=== PATIENT | female | born 1955 | race Caucasian/White ===

== ENCOUNTER 2024-09-24 07:44 | Day surgery (SDC) | payer OTHER, SELFPAY ==
[2024-09-01 10:07] VITALS: BMI 29.9
[2024-09-01 10:29] LABS: % Eosinophils 2.3 % (0-6); % Immature Granulocytes 0.4 % (0-0.5); % Lymphocytes 25.2 % (20.5-51.1); % Monocytes 7.6 % (1.7-9.3); % Neutrophils 63.5 % (42.2-75.2); Absolute Basophils 0.1 10^3/uL (0-0.2); Absolute Eosinophils 0.1 10^3/uL (0-0.7); Absolute Lymphocytes 1.3 10^3/uL (1.2-3.4); Absolute Monocytes 0.4 10^3/uL (0.1-0.6); Absolute Neutrophils 3.3 10^3/uL (1.4-6.5); Hematocrit 43.1 % (37.0-47.0); Hemoglobin 14.4 g/dL (12.0-16.0); Mean Corp Hgb Conc. 33.4 g/dL (33.0-37.0); Mean Corpuscular Hgb 31.1 pg (27.0-31.0); Mean Corpuscular Volume 93.1 fL (81.0-99.0); Mean Platelet Volume 9.7 fL (7.4-10.4); Nucleated Red Blood Cells % 0 %; Platelet Count 216 10^3/uL (130-400); Red Blood Cell Count 4.63 10^6/uL (4.20-5.40); White Blood Cell Count 5.2 10^3/uL (4.8-10.8)
[2024-09-01 10:40] LABS: INR 2.09; PT 23.9 Sec (11.4-14.6)
[2024-09-01 10:57] LABS: ALT (SGPT) 29 U/L (0-35); AST (SGOT) 36 U/L (14-36); Alkaline Phosphatase 160 U/L (38-126); Blood Urea Nitrogen 16 mg/dl (7-17); Calcium 10.2 mg/dl (8.4-10.2); Carbon Dioxide 32 mmol/L (22-30); Chloride 101 mmol/L (98-107); Estimated Creatinine Clearance 94 ml/min; Glucose 82 mg/dl (70-99); Potassium 3.9 mmol/L (3.5-5.1); Sodium 139 mmol/L (135-145); Total Bilirubin 0.6 mg/dl (0.2-1.3); Total Protein 7.4 g/dl (6.3-8.2); eGFR > 60.00
[2024-09-24] VITALS (13 sets, daily range): BP systolic 126–168; BP diastolic 58–93
[2024-09-24 08:22] LABS: INR 1.96; PT 22.5 Sec (11.4-14.6)
[2024-09-24 11:58] LABS: ACT-LR - POC > 397 Seconds (116-155)
[2024-09-24 11:58] LABS: ACT-LR - POC > 397 Seconds (116-155)
--- NOTE | 2024-09-24 12:00 | ITS.CL.ABL ---
Artificial Glass Eye Maker - Ablation
Ablation
Procedure Report:
ELECTROPHYSIOLOGY ABLATION STUDY
DATE:: September 24, 2024�����������������������������REFERRING: Dr. Mini Deleon
INDICATION: Persistent supraventricular tachycardia in the form of atrial fibrillation.�
HISTORY: See H and P.��Presents for pulmonary vein isolation
ANTIARRHYTHMIC DRUG: Phenytoin
PRE-PROCEDURE RAE: No intracardiac thrombus and intracardiac ultrasound
PRESENTING RHYTHM: As above
'TIME-OUT':��called and confirmed.
SEDATION/ANESTHESIA:��provided via the anesthesia department using general anesthesia (LMA).
INTRAVENOUS/ARTERIAL ACCESS:
Right femoral venous -8 Afghan upgraded to 16.8 Afghan
Left femoral venous - 8 Fr, 6 Fr
Left femoral arterial - 5 Fr
Ultrasound guidance for bilateral femoral vein access was utilized by me to obtain access with demonstration of normal anatomy
Qhpyxn-pg-luntn suture and lidocaine with epi to each femoral venous site at the end of the procedure.
HAS-Bled Score
PROCEDURE:
1.��A decapolar CS catheter was placed within the CS for mapping and pacing.��This was also used as the reference catheter for the 3-D map.
2. The intracardiac ultrasound catheter was positioned in the RA to identify the FO for targeting of transseptal puncture, assist��in identification of the pulmonary vein ostia, monitoring pre and post ablation pulmonary vein flow velocities,
monitoring for 'bubble' formation during RF application as a sign of thermal injury,��and to monitor for pericardial effusion during mapping and ablation procedure.���Left atrial size, LV ejection fraction, and pulmonary vein flows were monitored
pre and post ablation procedure. The other valves were inspected and found to be free of significant regurgitation or stenosis.
3.��Half of the calculated heparin bolus was administered prior to the first transeptal puncture.��Transseptal puncture was performed to diagnose RA and LA pressure so that safety of LA mapping and ablation could be further assessed, and to access
the left atrium and pulmonary veins for mapping and ablation.��This entailed advancing an 16.8 Afghan sheath, RF wire with dilator into the superior vena cava and withdrawing both (monitoring intracardiac ultrasound, fluoroscopy and tip pressure)
with the tip oriented toward the atrial septum.��The fossa ovalis was engaged (indicated by sudden displacement of the sheath tip as well as tenting of the fossa seen on intracardiac ultrasound).��Left atrial access required a pass with the
Brockenbrough needle extended.��Left atrial catheter position was confirmed by pressure monitoring (RA mean pressure 8 mm Hg and LA mean pressure 14 mm Hg), LA saturation (99%),��as well as fluoroscopy.��The sheath was advanced over the dilator and
positioned in the left atrium.��This procedure was repeated for the Agilis sheath.��The remainder of the calculated heparin bolus was administered and heparin was
infused to maintain ACT at 300 -350 seconds throughout the case.
4.��RA pacing was performed via the proximal decapolar poles and LA pacing was performed via the distal decapolr poles.
5. A quadrapolar catheter was first positioned at the His position for His Bundle recording which was tagged via the 3-D Navex sytem, and then passed to the RVA for RV pacing and recording.
6. The multipolar grid catheter and the Penta spline PFA catheter were placed in each of the LIPV, LSPV, RSPV and the RIPV.��
7.��Next, a 3-D map was created using Navex.���A 3-D reconstructed CT image was compared to the 3-D Navex map to assist in anatomic interpretation, mapping and ablation.��The CT image and the NavX image were fused.
8. A total of 59 lesions were given to the pulmonary veins, roof, posterior wall, and floor of the left atrium. Initial pass demonstrated entrance and exit block in all 4 pulmonary veins and majority of the posterior wall. Additional deliveries
were given to the roof outside the left superior pulmonary vein and the interatrial septum outside the right inferior pulmonary vein. Entrance next block was confirmed in all 4 pulmonary veins and the entirety of the posterior wall with electrical
silence and noncapture of the posterior wall. EP study post ablation did not demonstrate any other tachyarrhythmia.
9. Normal sinus node and AV node function.
TOTAL FLOURO TIME: 18.6 minutes
TOTAL RF DURATION: 0 minutes
REVERSAL OF HEPARIN: 50 mg of protamine, slow IV administration
COMPLICATIONS:
None
Intracardiac US shows no pericardial effusion post ablation.
SUMMARY:��
Complex left atrial mapping and ablation.
Isolation of all 4 pulmonary veins and the left atrial posterior wall from roof to floor as above.
RECOMMENDATIONS:
1. Ambulate in 4 hours
2. Resume anticoagulation with warfarin
3.� Consider same-day discharge
4.��Out of bed in 4 hours
Copy to: Dr. Mini Deleon
--- NOTE | 2024-09-24 14:48 | W.PN.UPDATE ---
Update Note
Progress Note Update
69 yo WF s/p PVI (same day). She denies cp, sob, dyan diet, b/l groins c/d/i F08, soft, EKG SB. She will continue Coumadin with a goal INR 2-3. Activity restrictions reviewed. She will f/u Dr. Deleon in 2 mo. She is for d/c home after 5pm if groins
stable and voiding.
--- NOTE | 2024-09-24 17:02 | PTCARENOTE ---
Patient ambulated to bathroom. Urine dark tamar/brown. CORROSION ENGINEER aware. Patient agreeable to be discharged home. Patient instructed to notify production crew supervisor if urine color doesn't improve.
== END 2024-09-24 17:04 | disposition home or self-care (01) ==
LOC: CATH 07:44
PROVIDERS: ATTENDING PHYSICIAN Internal Medicine Cardiovascular Disease; FAMILY PHYSICIAN Family Medicine; OTHER PHYSICIAN Internal Medicine Interventional Cardiology
DX: I48.92 Unspecified atrial flutter (principal); I48.91 Unspecified atrial fibrillation; R00.1 Bradycardia, unspecified; I10 Essential (primary) hypertension; E78.5 Hyperlipidemia, unspecified; Z86.73 Personal history of transient ischemic attack (TIA), and cerebral infarction without residual deficits; G47.33 Obstructive sleep apnea (adult) (pediatric); E04.1 Nontoxic single thyroid nodule; G40.909 Epilepsy, unspecified, not intractable, without status epilepticus; Z79.899 Other long term (current) drug therapy; Z79.01 Long term (current) use of anticoagulants
CPT/HCPCS: C1732; C1894; C1730; C1892; C1759; 36415; 75572; 80053; 83735; 85025; 85347; 85610; 86850; 86900; 86901; 93005; 93656; 93657; C1733; C1766; Q9967

== ENCOUNTER 2025-05-04 11:34 | Day surgery (SDC) | payer OTHER, SELFPAY ==
--- NOTE | 2025-05-04 16:57 | ITS.CL.IMPLP ---
Lead Software Architect - Implant Loop
Implant Loop
Procedure Report:
LINQ IMPLANTED LOOP RECORDER
Date of Procedure: May 04, 2025
Primary Care Physician: Dr. Esha Thorpe
Primary Stain Maker: Myself
Proocedure performed:
1. Implant LINQ loop recorder
Indication for procedure: Atrial fibrillation detection
Description of procedure: After informed consent was obtained,'time out' was called and confirmed, the patient was prepped and draped in a sterile fashion. Lidocaine with epi was used for local anesthesia. A punch incision was made in the fourth
intercostal space midclavicular line. The LINQ device was placed using the placement tool. A single 3-0 absorbable stitch was placed to close the skin track. The punch site was covered with steri-strips.
Complications: None
CONCLUSIONS/RECOMMENDATIONS:
1. Successful placement of LINQ loop recorder
2. Follow-up as scheduled.
== END 2025-05-04 13:06 | disposition home or self-care (01) ==
LOC: CATH 11:34
PROVIDERS: ATTENDING PHYSICIAN Internal Medicine Interventional Cardiology; FAMILY PHYSICIAN Family Medicine
DX: Z09 Encounter for follow-up examination after completed treatment for conditions other than malignant neoplasm (principal); Z86.73 Personal history of transient ischemic attack (TIA), and cerebral infarction without residual deficits; I10 Essential (primary) hypertension; E78.5 Hyperlipidemia, unspecified; Z79.899 Other long term (current) drug therapy; Z79.01 Long term (current) use of anticoagulants
CPT/HCPCS: 33285; C1764